=== PATIENT | male | born 1995 | race Caucasian/White ===

== ENCOUNTER 2024-05-31 17:56 | Emergency (ER) | payer MEDICAID ==
[~2024-05-31] VITALS: Ht 180.3 cm; Wt 65.8 kg
[2024-05-31] MEDS ORDERED: ONDANSETRON 4 MG TAB.RAPDIS ONE (18:42)
[2024-05-31] MEDS: ONDANSETRON 4 MG TAB.RAPDIS SL ONE (18:44)
[2024-05-31 18:52] LABS: BASOPHILS % (AUTO) 0.6 % (0.0-2.0); EOSINOPHILS % (AUTO) 0.3 % (0.0-6.0); HEMATOCRIT 44 % (39-51); HEMOGLOBIN 15.8 g/dL (13.5-17.5); LYMPHOCYTES # (AUTO) 1.8 K/uL (0.8-4.8); LYMPHOCYTES % (AUTO) 30.9 % (20.0-44.0); MEAN CORPUSCULAR HEMOGLOBIN 31 PG (26.0-33.0); MEAN CORPUSCULAR HGB CONC 36 g/dl (31.0-36.0); MEAN CORPUSCULAR VOLUME 84 fL (80-96); MONOCYTES # (AUTO) 0.5 K/uL (0.1-1.30); MONOCYTES % (AUTO) 9.2 % (2.0-12.0); NEUTROPHILS # (AUTO) 3.4 K/uL (1.8-8.9); PLATELET COUNT (AUTO) 178 K/uL (150-450); RED BLOOD CELL COUNT(AUTO) 5.19 MIL/uL (4.5-6.0); RED CELL DISTRIBUTION WIDTH 12.7 % (11.5-15.0); WHITE BLOOD COUNT (AUTO) 5.7 K/uL (4.3-11.0)
[2024-05-31 19:03] LABS: CALCIUM, SERUM 9.2 mg/dL (8.5-10.1); CREATININE 0.9 mg/dL (0.6-1.3)
[2024-05-31 19:08] LABS: ALBUMIN 4.5 g/dL (3.4-5.0); BILIRUBIN,DIRECT 0.2 mg/dL (0.0-0.2); BILIRUBIN,TOTAL 0.8 mg/dL (0.2-1.0); TOTAL PROTEIN, SERUM 7.6 g/dL (6.4-8.2)
[2024-05-31] MEDS ORDERED: ONDA4TAB11 PO (19:12)
[2024-05-31 19:29] VITALS: BP 130/75; O2SAT 100
== END 2024-05-31 19:30 | disposition home or self-care (01) ==
LOC: ER 18:13
DX: R11.0 Nausea (principal); F19.10 Other psychoactive substance abuse, uncomplicated; Z60.2 Problems related to living alone
CPT/HCPCS: 99283; 85025; 80048; 83690; 80076; 36415; Q0162

== ENCOUNTER 2024-09-09 11:28 | Emergency (ER) | payer MEDICAID ==
[~2024-09-09] VITALS: Ht 177.8 cm; Wt 70.3 kg
[~2024-09-09 11:28] MED LIST: ONDA4TAB11 PO
[2024-09-09 12:19] LABS: PLATELET COUNT (AUTO) 179 K/uL (150-450); RED BLOOD CELL COUNT(AUTO) 5.18 MIL/uL (4.5-6.0); RED CELL DISTRIBUTION WIDTH 12.5 % (11.5-15.0); WHITE BLOOD COUNT (AUTO) 5.6 K/uL (4.3-11.0)
[2024-09-09 12:29] LABS: CALCIUM, SERUM 9.1 mg/dL (8.5-10.1); CREATININE 0.9 mg/dL (0.6-1.3); SODIUM SERUM 136.0 mmol/L (136-145); UREA NITROGEN, BLOOD 9.0 mg/dL (7-18)
[2024-09-09] MEDS ORDERED: LIDO30AD10 TP (12:50)
[2024-09-09] MEDS ORDERED: CYCL5TAB PO (12:50)
[2024-09-09] MEDS ORDERED: IBUP-1955 PO (12:50)
[2024-09-09] MEDS ORDERED: IV NS 0.9% 250 ML IV ONE (12:56)
[2024-09-09] MEDS ORDERED: IOHEXOL-300 100 ML VIAL IV ONE (12:56)
[2024-09-09 14:33] VITALS: BP 115/76; TEMP 97.9; O2SAT 100
== END 2024-09-09 14:34 | disposition home or self-care (01) ==
LOC: ER 11:40
DX: S39.011A Strain of muscle, fascia and tendon of abdomen, initial encounter (principal); S39.012A Strain of muscle, fascia and tendon of lower back, initial encounter; Z60.2 Problems related to living alone; Z79.899 Other long term (current) drug therapy; V49.09XA Driver injured in collision with other motor vehicles in nontraffic accident, initial encounter; Y93.89 Activity, other specified; Y92.415 Exit ramp or entrance ramp of street or highway as the place of occurrence of the external cause; Y99.8 Other external cause status
CPT/HCPCS: 99285; 74177; 71045; 85025; 80048; 36415; J7050; Q9967